=== PATIENT | female | born 1950 | race Asian ===

== ENCOUNTER 2017-01-02 22:26 | Inpatient (IN) | payer OTHER ==
[~2017-01-02] VITALS: Ht 149.9 cm; Wt 64.4 kg
[2017-01-02 22:30] VITALS: BP 155/71
--- NOTE | 2017-01-02 22:37 | NUR ---
PT TAKEN TO BED 7
--- NOTE | 2017-01-02 22:47 | NUR ---
Patient being evaluated by physician at bedside.
--- NOTE | 2017-01-02 22:47 | NUR ---
Jah simon in [facility] - 01/02/17 at [address] Teixeira evaluating patient at bedside.
[2017-01-02] MEDS ORDERED: NITROGLYCERIN 0.4 MG TAB SL ONE (22:55)
[2017-01-02] MEDS ORDERED: ASPIRIN 325 MG TAB PO ONE (22:55)
--- NOTE | 2017-01-02 23:06 | NUR ---
X-Ray at bedside.
--- NOTE | 2017-01-02 23:20 | NUR ---
66 YO FEMALE BIB FAMILY C/O SOB AND CHEST PAIN. HISTORY OF ASTHMA BUT DENIES EPISODES FOR LAST 13 YEARS. PT HAS HAD SURGERY ON BOTH EYES AND RT SHOULDER WITH IN LAST YEAR. PT STATES HAS HAD CHEST PAIN BEFORE BUT NOT WITH HEAVINESS LIKE THIS TIME. CHEST PAIN STARTED AFTER EATING AT 2150. PT STATES PAIN IS A HEAVINESS RADIATING TO THE BACK AND 8/10. LUNG SOUNDS ARE CLEAR BILATERALLY THROUGHOUT. O2 SAT ON RA IS 99%. PT IS ABLE TO ANSWER ALL QUESTIONS. PT DENIES ANY N/T. VSS. COMFORT MEASURES PROVIDED AND PT IS RESTING IN BED WITH FAMILY AT BEDSIDE. ER MD NOTIFIED OF PT STATUS.
[2017-01-02 23:23] LABS: BASOPHILS # (AUTO) 0.4 K/uL (0.00-0.22); BASOPHILS % (AUTO) 3.5 % (0.0-2.0); EOSINOPHILS # (AUTO) 0.4 K/uL (0-0.4); EOSINOPHILS % (AUTO) 3.8 % (0.0-4.0); HEMATOCRIT 41.4 % (36-48); HEMOGLOBIN 13.4 g/dL (12.0-16.0); LYMPHOCYTES # (AUTO) 4.1 K/uL (2.5-16.5); LYMPHOCYTES % (AUTO) 38.2 % (20.5-51.1); MEAN CORPUSCULAR HEMOGLOBIN 27 pg (27-31); MEAN CORPUSCULAR HGB CONC 32 g/dL (33-37); MEAN CORPUSCULAR VOLUME 83 fL (80-94); MONOCYTES # (AUTO) 0.8 K/uL (0.8-1.0); MONOCYTES % (AUTO) 7.5 % (1.7-9.3); NEUTROPHILS # (AUTO) 5.1 K/uL (1.8-7.7); PLATELET COUNT (AUTO) 206 K/uL (140-450); RED BLOOD CELL COUNT(AUTO) 4.99 MIL/uL (4.20-5.40); RED CELL DISTRIBUTION WIDTH 13.9 % (11.6-13.7); WHITE BLOOD COUNT (AUTO) 10.8 K/uL (4.8-10.8)
[2017-01-02 23:30] LABS: ANION GAP 12.3 (8-16); CARBON DIOXIDE 29.2 mmol/L (21-32); POTASSIUM 3.5 mmol/L (3.5-5.1)
[2017-01-02 23:32] LABS: ALBUMIN 3.6 g/dL (3.4-5.0); TOTAL BILIRUBIN 0.4 mg/dL (0.0-1.0)
[2017-01-02 23:34] LABS: PROTHROMBIN TIME 9.5 secs (10.8-13.4)
[2017-01-03] MEDS ORDERED: ONDANSETRON 4 MG/2 ML VIAL IVP PRN (00:20)
[2017-01-03] MEDS ORDERED: MORPHINE SULFATE 2 MG/ML SYR IVP PRN (00:20)
[2017-01-03] MEDS ORDERED: NITROGLYCERIN 0.4 MG TAB SL PRN (00:20)
[2017-01-03] MEDS ORDERED: ZOLPIDEM 5 MG TAB PO PRN (00:20)
[2017-01-03] MEDS ORDERED: HYDROcodone/APAP 5/325 MG 1 TAB TAB PO PRN (00:20)
[2017-01-03] MEDS ORDERED: LORazepam 1 MG TAB PO PRN (00:20)
[2017-01-03] MEDS ORDERED: ACETAMINOPHEN 325 MG TAB PO PRN (00:20)
--- NOTE | 2017-01-03 00:44 | NUR ---
Patient will be admitted to care of Joseph YOO. Admited to TELEMETRY. Will go to room 121-B. Belongings list completed. Report to ELIZABETH .
--- NOTE | 2017-01-03 00:55 | NUR ---
ADMITTED PATIENT TO THE TELE UNIT, PATIENT AWAKE ALERT ORIENTED X4, NO S/S OF ACUTE DISTRESS NOTED, RESPIRATION EVEN AND UNLABORED, TELE MONITOR IS PLACED ON PATIENT. FLUSHED IV WITH 10ML NS, PATENT AND INTACT. PLAN OF CARE DISCUSSED, PATIENT VERBALIZED UNDERSTANDING, CALL LIGHT WITHIN REACH, SAFETY MEASURE ENSURED, WILL CONTINUE TO MONITOR.
[2017-01-03 01:10] VITALS: BP 149/60
--- NOTE | 2017-01-03 03:21 | NUR ---
PATIENT IS SLEEPING AT THIS TIME. NO S/S OF ACUTE DISTRESS NOTED, RESPIRATION EVEN AND UNLABORED, CALL LIGHT WITHIN REACH, SAFETY MEASURE ENSURED, WILL CONTINUE TO MONITOR.
[2017-01-03 04:15] VITALS: BP 132/72
--- NOTE | 2017-01-03 07:02 | NUR ---
ENDORSED PLAN OF CARE TO DAY RN. PATIENT RESTING IN BED, NO S/S OF ACUTE DISTRESS. PATIENT IS IN STABLE CONDITION.
--- NOTE | 2017-01-03 07:03 | NUR ---
RECEIVED REPORT FROM FISHING INSTRUCTOR NURSE AT BEDSIDE FOR CONTINUITY OF CARE. PT IS AWAKE AND ORIENTED. INTRODUCED SELF AND UPDATED BOARD. WILL CONTINUE WITH CURRENT PLAN OF CARE AND MONITOR PT.
[2017-01-03 07:37] LABS: CREATINE KINASE MB 1.1 ng/mL (0-3.6)
[2017-01-03 08:00] VITALS: BP 157/81
[2017-01-03] MEDS ORDERED: INFLUENZA VIRUS VACCINE QUAD 0.5 ML SYR IMVAC SCH (09:00)
[2017-01-03] MEDS ORDERED: PNEUMOCOCCAL VACCINE 23 MCG/0.5 ML VIAL IMVAC SCH (09:00)
--- NOTE | 2017-01-03 09:30 | NUR ---
ADMINISTERED MEDS. PT'S FAMILY IS AT BEDSIDE AND TRANSLATED FOR PT. PRIMARY LANGUAGE IS [employer] BUT PT CAN SPEAK SOME PORTUGUESE. GAVE UPDATE OF PT AND MEDICATION PURPOSE AND SIDE EFFECTS TO PT'S DAUGHTER. PROVIDED FAMILY AND PT EDUCATION ON DX. VERBALIZED UNDERSTANDING. PT TOLERATED MEDS WELL. PT DENIES CHEST PAIN. LUNG SOUNDS CLEAR THROUGHOUT. BS PRESENT. IV IS ON LEFT HAND 20G SL. PT HAS NO COMPLAINTS AT THIS TIME WILL CONTINUE TO MONITOR.
[2017-01-03] MEDS: DOCUSATE SODIUM 100 MG GELCAP PO SCH (09:31)
--- NOTE | 2017-01-03 09:52 | NUR ---
PATIENT HAS BEEN SCREENED AND CATEGORIZED MODERATE NUTRITION RISK. PATIENT WILL BE SEEN WITHIN 3-5 DAYS OF ADMISSION. 01/05/17-01/07/[address]
--- NOTE | 2017-01-03 10:40 | NUR ---
RECEIVE DPT IN STABLE CONDITION FROM AM NURSE. AWAKE,ALERT AND ORIENTED X4. ON TELE MONITOR-SR. WITH NO C/O ANY DISCOMFORT NOR PAIN NOTED. HAS HL ON THE LT HAND#20. CLEAR AND PATENT. AMBULATORY. PLAN OF CARE DISCUSSED AND VERBALIZED UNDERSTANDING. CALL LIGHT PLACED WITHIN EASY REACH. WILL CONTINUE TO MONITOR. Addendum: 01/03/17 at 2223 by Mari Ragland RN CANCEL ABOVE NOTES. CAREGIVER MISTAKE.
[2017-01-03 12:00] VITALS: BP 148/70
--- NOTE | 2017-01-03 12:45 | NUR ---
PT IS SLEEPING IN ROOM RIGHT NOW. DENIES CHEST PAIN. VS: WNL. WILL CONTINUE TO MONITOR.
--- NOTE | 2017-01-03 14:48 | NUR ---
CHECKED ON PT IN ROOM. GETTING ECHO DONE BY TECH. DAUGHTER IS AT BEDSIDE. NO COMPLAINTS AT THIS TIME WILL CONTINUE TO MONITOR.
[2017-01-03 15:53] VITALS: BP 161/82
--- NOTE | 2017-01-03 19:22 | NUR ---
ENDORSED PT TO HOSE COUPLING JOINER NURSE AT BEDSIDE FOR CONTINUITY OF CARE. PT IN STABLE CONDITION
--- NOTE | 2017-01-03 19:40 | NUR ---
RECEIVED PT IN STABLE CONDITION FROM AM NURSE. AWAKE,ALERT AND ORIENTED X4. ON TELE MONITOR-SR. WITH NO C/O ANY DISCOMFORT NOR PAIN NOTED. HAS HL ON THE LT HAND#20. CLEAR AND PATENT. AMBULATORY. PLAN OF CARE DISCUSSED AND VERBALIZED UNDERSTANDING. CALL LIGHT PLACED WITHIN EASY REACH. WILL CONTINUE TO MONITOR.
[2017-01-03 19:50] VITALS: BP 142/66
--- NOTE | 2017-01-03 21:00 | NUR ---
MADE ROUNDS. [T SLEEPING WELL. NO S/ OF ANY DISCOMFORT NOTED. WILL CONTINUE TO MONITOR.
[2017-01-04] VITALS: BP 128/71
--- NOTE | 2017-01-04 | NUR ---
AWAKE. NO C/O ANY PAIN NOR DISCOMFORT NOTED. VITAL SIGNS STABLE LATEST BP 128/71. WILL CONTINUE TO MONITOR.
--- NOTE | 2017-01-04 03:00 | NUR ---
MADE ROUNDS. ASLEEP. NO S/S PF ANY DISCOMFORT NOR PAIN NOTED.
[2017-01-04 04:36] VITALS: BP 132/75
--- NOTE | 2017-01-04 06:00 | NUR ---
NO CHEST PAIN NOTED DURING THE NIGHT. WILL CONTINUE TO MONITOR.
[2017-01-04 07:08] LABS: ANION GAP 9.1 (8-16); CARBON DIOXIDE 31.4 mmol/L (21-32); CREATININE 0.8 mg/dL (0.6-1.3); POTASSIUM 4.5 mmol/L (3.5-5.1)
[2017-01-04 07:10] LABS: BASOPHILS # (AUTO) 0.3 K/uL (0.00-0.22); BASOPHILS % (AUTO) 3.3 % (0.0-2.0); EOSINOPHILS # (AUTO) 0.2 K/uL (0-0.4); EOSINOPHILS % (AUTO) 2.5 % (0.0-4.0); HEMATOCRIT 43.5 % (36-48); HEMOGLOBIN 13.9 g/dL (12.0-16.0); LYMPHOCYTES % (AUTO) 23.7 % (20.5-51.1); MEAN CORPUSCULAR HEMOGLOBIN 27 pg (27-31); MEAN CORPUSCULAR HGB CONC 32 g/dL (33-37); MEAN CORPUSCULAR VOLUME 83 fL (80-94); MONOCYTES # (AUTO) 0.6 K/uL (0.8-1.0); MONOCYTES % (AUTO) 7.3 % (1.7-9.3); NEUTROPHILS # (AUTO) 5.3 K/uL (1.8-7.7); NEUTROPHILS % (AUTO) 63.2 % (42.2-75.2); PLATELET COUNT (AUTO) 251 K/uL (140-450); RED BLOOD CELL COUNT(AUTO) 5.22 MIL/uL (4.20-5.40); RED CELL DISTRIBUTION WIDTH 14.1 % (11.6-13.7); WHITE BLOOD COUNT (AUTO) 8.4 K/uL (4.8-10.8)
--- NOTE | 2017-01-04 07:20 | NUR ---
ENDORSED PT IN STABLE CONDITION TO AM NURSE.
--- NOTE | 2017-01-04 07:25 | NUR ---
RECEIVED PT REPORT AT BEDSIDE FROM NIGHT NURSE. PT IS AAOX4 AND SHOWS NO S/S OF ACUTE DISTRESS ON ROOM AIR. PT ON TELE MONITOR. SKIN IS INTACT. IV NOTED ON THE L AC SL. PT WAS EXPLAINED POC FOR TODAY AND VERBALIZED UNDERSTANDING. THE BED IS LOWERED WITH CALL LIGHT WITHIN REACH. WILL CONTINUE TO MONITOR.
[2017-01-04 07:57] LABS: MAGNESIUM 2.2 mg/dL (1.8-2.4); PHOSPHORUS 3.1 mg/dL (2.5-4.9)
[2017-01-04 08:00] VITALS: BP 142/72
[2017-01-04] MEDS: DOCUSATE SODIUM 100 MG GELCAP PO SCH (09:15)
--- NOTE | 2017-01-04 09:19 | NUR ---
ADMINISTERED SCHEDULED MEDICATIONS. PT TOLERATED ACTIVITY WELL. PT DENIES CHEST PAIN AND SOB. PT'S NEEDS ARE MET AT THIS TIME. WILL CONTINUE TO MONITOR.
--- NOTE | 2017-01-04 09:20 | NUR ---
PT STATED SHE HAD A BM TODAY. PT IS IN BED AND SHOWS NO S/S OF ACUTE DISTRESS ON ROOM AIR. BED IN LOW POSITION WITH CALL LIGHT WITHIN REACH.
--- NOTE | 2017-01-04 11:30 | NUR ---
PT IS WATCHING TV AND SHOWS NO S/S OF ACUTE DISTRESS ON ROOM AIR. PT'S NEEDS ARE MET AT THIS TIME.
[2017-01-04 12:00] VITALS: BP 134/80
--- NOTE | 2017-01-04 13:19 | NUR ---
PT IN BED TALKING ON THE PHONE AND SHOWS NO S/S OF ACUTE DISTRESS. WILL CONTINUE TO MONITOR.
[2017-01-04] MEDS ORDERED: ASPI81CT89 PO (13:39)
--- NOTE | 2017-01-04 15:10 | NUR ---
PT IS WATCHING TV AND SHOWS NO S/S OF ACUTE DISTRESS ON ROOM AIR. PT DENIES PAIN AND SOB. PT IS WAITING TO BE PICKED UP BY DAUGHTER TO BE DISCHARGED.
--- NOTE | 2017-01-04 15:40 | NUR ---
PT HAS BEEN DISCHARGED. DISCHARGE INSTRUCTIONS AND PRESCRIPTIONS GIVEN. ALL PAPERWORK SINGED. ALL QUESTIONS ANSWERED. ALL BELONGINGS AND PRESCRIPTIONS IN PATIENT'S POSSESSION. IV DISCONTINUED WITH CANNULA INTACT. WRISTBANDS AND TELE MONITOR REMOVED. OFFERED PT WHEELCHAIR, PT REFUSED AND AMB OFF UNIT WITH STEADY GAIT WITH DAUGHTER PRESENT AT SIDE. PT IN STABLE CONDITION.
== END 2017-01-04 15:40 | disposition home or self-care (01) | DRG 206 ==
LOC: MED 22:26 → MTU 01-03 00:29
PROVIDERS: ADMIT Preventive Medicine Preventive Medicine/Occupational Environmental Medicine; ATTEND Preventive Medicine Preventive Medicine/Occupational Environmental Medicine
PROC: 3E0234Z Introduction of Serum, Toxoid and Vaccine into Muscle, Percutaneous Approach (ICD-10-PCS; principal; 2017-01-03)
PROC: 3E0234Z Introduction of Serum, Toxoid and Vaccine into Muscle, Percutaneous Approach (ICD-10-PCS; 2017-01-03)
DX: M94.0 Chondrocostal junction syndrome [Tietze] (principal); J45.909 Unspecified asthma, uncomplicated; N18.9 Chronic kidney disease, unspecified; R03.0 Elevated blood-pressure reading, without diagnosis of hypertension; R73.9 Hyperglycemia, unspecified; Z98.42 Cataract extraction status, left eye; Z98.41 Cataract extraction status, right eye; Z23 Encounter for immunization
CPT/HCPCS: 36415; 71010; 80048; 80053; 82550; 82553; 83735; 83880; 84100; 84484; 85025; 85379; 85610; 85730; 87081; 90658; 90732; 93005; 99285; Q0092

== ENCOUNTER 2020-03-03 18:56 | Emergency (ER) | payer OTHER ==
[~2020-03-03] VITALS: Ht 149.9 cm; Wt 59.9 kg
[~2020-03-03 18:56] MED LIST: ASPI-1822 PO
[2020-03-03 19:30] VITALS: BP 103/59
--- NOTE | 2020-03-03 19:33 | NUR ---
TO LOBBY AMBULATORY , A/W BED
[2020-03-03 21:45] VITALS: BP 103/59
--- NOTE | 2020-03-03 22:14 | NUR ---
PT AMBULATED TO CHAIR C
--- NOTE | 2020-03-03 23:20 | NUR ---
VISUAL ACUITY RT EYE 2/ Addendum: 03/03/20 at 2324 by MEDVANNESSA RT EYE 20/40 , LEFT EYE 20/30
--- NOTE | 2020-03-03 23:30 | NUR ---
SEEN AND EXAMINED BY [place] WITH ORDERS AND CARRIED OUT.
--- NOTE | 2020-03-03 23:35 | NUR ---
BOTH EYES CLEANED AND FLUSHED WITH STERILE WATER. PATIENT TOLERATED WELL.
--- NOTE | 2020-03-04 00:07 | NUR ---
ERMD MEDICATED , PATIENT TOLERATED WELL
[2020-03-04] MEDS: FLUORESCEIN OPTH STRIP 1 MG OP ONE (00:12)
[2020-03-04] MEDS: TETRACAINE HCL/PF 0.5% OPTH 4 ML BTL OP ONE (00:14)
--- NOTE | 2020-03-04 00:40 | NUR ---
Patient discharged with v/s stable. Written and verbal after care instructions given and explained. Patient alert, oriented and verbalized understanding of instructions. Ambulatory with steady gait. All questions addressed prior to discharge. ID band removed. Patient advised to follow up with PMD. Rx of REFRESH PLUS given. Patient educated on indication of medication including possible reaction and side effects. Opportunity to ask questions provided and answered.
== END 2020-03-04 00:40 | disposition home or self-care (01) ==
LOC: MED 18:56
DX: L29.9 Pruritus, unspecified (principal); E11.9 Type 2 diabetes mellitus without complications; I10 Essential (primary) hypertension
CPT/HCPCS: 99283